=== PATIENT | male | born 1990 | race Caucasian/White ===

== ENCOUNTER 2016-09-25 19:08 | Emergency (ER) | payer BC, OTHER ==
[2016-09-25] MEDS ORDERED: TYLENOL ONE (19:52)
[2016-09-25 21:11] LABS: Basophils % (Auto) 0.8 % (0.0-1.8); Eosinophils % (Auto) 0.3 % (0.0-4.3); Hematocrit 46.1 % (35.5-45.6); Hemoglobin 15.1 gm/dl (11.8-15.2); Mean Corpuscular HGB Conc 33 % (32-34); Mean Corpuscular Hemoglobin 29 pg (28-32); Mean Corpuscular Volume 87 fl (84-94); Platelet Count 275 K/mm3 (140-440); Red Cell Distribution Width 13.8 % (13.2-15.2); White Blood Count 12.5 K/mm3 (4.5-11.0)
[2016-09-25 21:33] LABS: Anion Gap 22 mmol/L; BUN/Creatinine Ratio 13.75; Blood Urea Nitrogen 11 mg/dL (9-20); Calcium 9.6 mg/dL (8.4-10.2); Carbon Dioxide 21 mmol/L (22-30); Chloride 100.2 mmol/L (98-107); Glucose 127 mg/dL (75-100); Potassium 3.3 mmol/L (3.6-5.0); Sodium 140 mmol/L (137-145)
[2016-09-25 21:42] LABS: Urine Drugs of Abuse Note Disclamer
[2016-09-25 22:07] LABS: Bilirubin,Urine NEG (Negative); Blood,Urine NEG (Negative); Ketones,Urine 20 mg/dL (Negative); Leukocyte Esterase,Urine NEG (Negative); Mucus,Urine 3+ /HPF; Nitrite,Urine NEG (Negative); Urobilinogen,Urine < 2.0 mg/dL (<2.0)
[2016-09-25] MEDS ORDERED: TYLENOL PO ONE (22:47)
[2016-09-25 23:22] VITALS: BP 134/82
--- NOTE | 2016-09-25 23:36 | Emergency Department Report ---
HPI - General Chief Complaint: Psych Time Seen by Provider: 09/25/16 23:22 - HPI HPI: Room 8 The patient is a 26-year-old male presenting with a chief complaint of chest pain. The patient states for 1 day he has had constant left chest pain described as sharp in nature. Patient does admit to a slight pleuritic component. Patient is to nausea but denies vomiting, shortness of breath, cough or fever. The patient currently gives his pain a score of 1/10. Patient denies suicidal or homicidal ideation. Patient denies auditory hallucinations. Location: Chest Duration: One day Quality: Sharp Severity: 1/10 Modifying factors: [see above] Context: [see above] Mode of transportation: [not driving] ED Past Medical Hx - Past Medical History Previous Medical History?: Yes Hx Psychiatric Treatment: Yes (schizophrenia) - Surgical History Past Surgical History?: Yes Additional Surgical History: Left knee - Family History Family history: no significant - Social History Smoking Status: Current Every Day Smoker (one pack per day) Substance Use Type: Prescribed, Other - Medications Home Medications: Home Medications Medication Instructions Recorded Confirmed Last Taken Type Sertraline [Zoloft] 100 mg PO QDAY 09/25/16 09/25/16 09/25/16 History Ibuprofen [Motrin 800 MG tab] 800 mg PO Q8HR PRN #20 tablet 09/26/16 Unknown Rx traMADol [Ultram] 50 mg PO Q6HR PRN #10 tablet 09/26/16 Unknown Rx ED Review of Systems ROS: Stated complaint: HEAD/EAR/HEART HURT Other details as noted in HPI Comment: All other systems reviewed and negative Constitutional: denies: chills, fever Eyes: denies: eye pain, eye discharge, vision change ENT: denies: ear pain, throat pain Respiratory: denies: cough, shortness of breath, wheezing Cardiovascular: chest pain Endocrine: no symptoms reported Gastrointestinal: nausea. denies: vomiting Genitourinary: denies: urgency, dysuria Musculoskeletal: myalgia Skin: denies: rash, lesions Neurological: denies: headache, weakness, paresthesias Psychiatric: denies: auditory hallucinations, homicidal thoughts, suicidal thoughts Hematological/Lymphatic: denies: easy bleeding, easy bruising Physical Exam - Physical Exam Vital Signs: Vital Signs 09/25/16 09/25/16 19:50 23:14 Temperature 99.4 F 98.4 F Pulse Rate 107 H 105 H Respiratory 18 20 Rate Blood Pressure 134/82 [Left] Blood Pressure 156/93 [Right] O2 Sat by Pulse 99 100 Oximetry Physical Exam: GENERAL: The patient is well-developed well-nourished male lying on stretcher not appearing to be in acute distress. Patient has apparent poor hygiene and flat affect HEENT: Normocephalic. Atraumatic. Extraocular motions are intact. Patient has moist mucous membranes. NECK: Supple. Trachea midline CHEST/LUNGS: Clear to auscultation. There is no respiratory distress noted. HEART/CARDIOVASCULAR: Regular. There is no tachycardia. There is no gallop rub or murmur. ABDOMEN: Abdomen is soft, nontender. Patient has normal bowel sounds. There is no abdominal distention. SKIN: There is no rash. There is no edema. There is no diaphoresis. NEURO: The patient is awake, alert, and oriented. The patient is cooperative. The patient has no focal neurologic deficits. MUSCULOSKELETAL: There is no evidence of acute injury. ED Course Vital Signs 09/25/16 09/25/16 19:50 23:14 Temperature 99.4 F 98.4 F Pulse Rate 107 H 105 H Respiratory 18 20 Rate Blood Pressure 134/82 [Left] Blood Pressure 156/93 [Right] O2 Sat by Pulse 99 100 Oximetry - Consultations Consultation #1: 09/26/16 00:32 Case discussed with mental health new home sales consultant. Patient okay to continue outpatient therapy ED Medical Decision Making - Lab Data Result diagrams: 09/25/16 20:51 09/25/16 20:51 Laboratory Tests 09/25/16 09/25/16 09/25/16 20:51 20:51 20:51 WBC 12.5 H RBC 5.30 H Hgb 15.1 Hct 46.1 H MCV 87 MCH 29 MCHC 33 RDW 13.8 Plt Count 275 Lymph % (Auto) 10.5 L [place] % (Auto) 8.5 H Eos % (Auto) 0.3 Baso % (Auto) 0.8 Lymph # 1.3 [place] # 1.1 H Eos # 0.0 Baso # 0.1 Seg Neutrophils % 79.9 H Seg Neutrophils # 10.0 H D-Dimer Sodium 140 Potassium 3.3 L Chloride 100.2 Carbon Dioxide 21 L Anion Gap 22 BUN 11 Creatinine 0.8 Estimated GFR > 60 BUN/Creatinine Ratio 13.75 Glucose 127 H Calcium 9.6 Troponin T < 0.010 Urine Color Urine Turbidity Urine pH Ur Specific [place] Urine Protein Urine Glucose (UA) Urine Ketones Urine Blood Urine Nitrite Urine Bilirubin Urine Urobilinogen Ur Leukocyte Esterase Urine WBC (Auto) Urine RBC (Auto) U Epithel Cells (Auto) Urine Mucus Urine Opiates Screen Urine Methadone Screen Ur Barbiturates Screen Ur Phencyclidine Scrn Ur Amphetamines Screen U Benzodiazepines Scrn Urine Cocaine Screen U Marijuana (THC) Screen Drugs of Abuse Note Plasma/Serum Alcohol < 0.01 09/25/16 09/25/16 09/25/16 21:36 21:36 23:25 WBC RBC Hgb Hct MCV MCH MCHC RDW Plt Count Lymph % (Auto) [place] % (Auto) Eos % (Auto) Baso % (Auto) Lymph # [place] # Eos # Baso # Seg Neutrophils % Seg Neutrophils # D-Dimer Sodium Potassium Chloride Carbon Dioxide Anion Gap BUN Creatinine Estimated GFR BUN/Creatinine Ratio Glucose Calcium Troponin T < 0.010 Urine Color Yellow Urine Turbidity Clear Urine pH 5.0 Ur Specific [place] 1.028 Urine Protein 30 mg/dl Urine Glucose (UA) Neg Urine Ketones 20 Urine Blood Neg Urine Nitrite Neg Urine Bilirubin Neg Urine Urobilinogen < 2.0 Ur Leukocyte Esterase Neg Urine WBC (Auto) 2.0 Urine RBC (Auto) 3.0 U Epithel Cells (Auto) < 1.0 Urine Mucus 3+ Urine Opiates Screen Presumptive negative Urine Methadone Screen Presumptive negative Ur Barbiturates Screen Presumptive negative Ur Phencyclidine Scrn Presumptive negative Ur Amphetamines Screen Presumptive negative U Benzodiazepines Scrn Presumptive negative Urine Cocaine Screen Presumptive negative U Marijuana (THC) Screen Presumptive negative Drugs of Abuse Note Disclamer Plasma/Serum Alcohol 09/25/16 23:33 WBC RBC Hgb Hct MCV MCH MCHC RDW Plt Count Lymph % (Auto) [place] % (Auto) Eos % (Auto) Baso % (Auto) Lymph # [place] # Eos # Baso # Seg Neutrophils % Seg Neutrophils # D-Dimer 160.16 Sodium Potassium Chloride Carbon Dioxide Anion Gap BUN Creatinine Estimated GFR BUN/Creatinine Ratio Glucose Calcium Troponin T Urine Color Urine Turbidity Urine pH Ur Specific [place] Urine Protein Urine Glucose (UA) Urine Ketones Urine Blood Urine Nitrite Urine Bilirubin Urine Urobilinogen Ur Leukocyte Esterase Urine WBC (Auto) Urine RBC (Auto) U Epithel Cells (Auto) Urine Mucus Urine Opiates Screen Urine Methadone Screen Ur Barbiturates Screen Ur Phencyclidine Scrn Ur Amphetamines Screen U Benzodiazepines Scrn Urine Cocaine Screen U Marijuana (THC) Screen Drugs of Abuse Note Plasma/Serum Alcohol - EKG Data -: EKG Interpreted by Me EKG shows normal: sinus rhythm Rate: tachycardia (111 bpm) - EKG Data When compared to previous EKG there are: previous EKG unavailable - Radiology Data Radiology results: image reviewed (chest x-ray) interpreted by me: Chest x-ray-no focal infiltrates, no pneumothorax - Differential Diagnosis PE, pericarditis, GERD, pneumonia, pneumothorax Critical care attestation.: If time is entered above; I have spent that time in minutes in the direct care of this critically ill patient, excluding procedure time. ED Disposition Clinical Impression: Schizophrenia, Atypical chest pain Disposition: DISCHARGED TO HOME OR SELFCARE Is pt being admited?: No Does the pt Need Aspirin: No Condition: Stable Instructions: Chest Pain (ED) Additional Instructions: Return to the emergency department immediately should you develop worsening symptoms, fever, inability to tolerate food or liquid or any other concerns. Prescriptions: Ibuprofen [Motrin 800 MG tab] 800 mg PO Q8HR PRN #20 tablet PRN Reason: Pain traMADol [Ultram] 50 mg PO Q6HR PRN #10 tablet PRN Reason: Pain Referrals: PRIMARY CARE, [Primary Care Provider] - 3-5 Days Time of Disposition: 00:35
--- NOTE | 2016-09-26 08:00 | XRay Report ---
ROUTINE CHEST, TWO VIEWS: Chest pain. PA and lateral views demonstrate the heart and mediastinal contour to be of normal size and shape. The lungs are clear and fully expanded and the soft tissues and bony structures are normal. IMPRESSION: Normal study.
== END 2016-09-26 00:54 | disposition home or self-care (01) ==
LOC: ED 19:08
DX: F20.9 Schizophrenia, unspecified (principal); R07.89 Other chest pain; F17.200 Nicotine dependence, unspecified, uncomplicated
CPT/HCPCS: 36415; 71020; 80048; 80307; 81001; 84484; 85025; 85379; 93005; 93010; 99285; G0480; 80320

== ENCOUNTER 2018-03-12 12:18 | Outpatient (CLI) | payer OTHER ==
--- NOTE | 2018-03-12 13:26 | Ultrasound Report ---
ULTRASOUND TESTICULAR DOPPLER COMPLETE History: Epididymitis. Technique: Trans-scrotal ultrasound with spectral doppler interrogation. Findings: Both testes and are normal size, contour and echotexture. No hydrocele or varicocele. No mass or pathologic calcifications. The right epididymal head is slightly enlarged and heterogeneous which could represent epididymitis. The left epididymis is normal. Doppler interrogation depicts symmetric arterial flow to both testes. IMPRESSION: Question mild right epididymitis.
== END 2018-03-12 12:19 | disposition home or self-care (01) ==
LOC: US 12:18
PROVIDERS: ATTEND Urology
DX: N45.1 Epididymitis (principal); F17.210 Nicotine dependence, cigarettes, uncomplicated; Z88.8 Allergy status to other drugs, medicaments and biological substances
CPT/HCPCS: 93975

== ENCOUNTER 2018-09-16 18:34 | Emergency (ER) | payer OTHER ==
--- NOTE | 2018-09-16 18:57 | Emergency Department Report ---
Stated Complaint: ANXIETY Time Seen by Provider: 09/16/18 18:53 - HPI History of Present Illness: This is a 28 y.o. male that presents to the ER to r/o allergic reaction. Reports muscles feel tense. Patient states he took geodon earlier than usual. He took it 40 mins to an hour ago. He usually take it at night. Denies SI/HI, hallucinations, or pain. Depression, anxiety, and schizophrenia - Exam Vital Signs: Vital Signs 09/16/18 18:54 Temperature 98.7 F Pulse Rate 90 Respiratory 18 Rate Blood Pressure 133/88 O2 Sat by Pulse 99 Oximetry MSE screening note: Focused history and physical exam performed. Due to findings the following was ordered: labs Main ED ED Disposition for MSE Condition: Stable
[2018-09-16 18:59] VITALS: BP 133/88
[2018-09-16 19:57] LABS: Basophils # (Auto) 0.1 K/mm3 (0.0-0.1); Basophils % (Auto) 0.9 % (0.0-1.8); Eosinophils # (Auto) 0.2 K/mm3 (0.0-0.4); Eosinophils % (Auto) 1.6 % (0.0-4.3); Lymphocytes # (Auto) 3.8 K/mm3 (1.2-5.4); Mean Corpuscular HGB Conc 36 % (32-34); Mean Corpuscular Volume 88 fl (84-94); Monocytes % (Auto) 8.1 % (0.0-7.3); Platelet Count 349 K/mm3 (140-440); Red Blood Count 5.27 M/mm3 (3.65-5.03); Red Cell Distribution Width 13.5 % (13.2-15.2)
[2018-09-16 20:09] LABS: BUN/Creatinine Ratio 10; Blood Urea Nitrogen 10 mg/dL (9-20); Hemolysis Index 16
[2018-09-16 20:16] LABS: Hemoglobin 16.7 gm/dl (11.8-15.2)
[2018-09-16 20:17] LABS: Hematocrit 46.3 % (35.5-45.6)
[2018-09-16 21:45] LABS: Bilirubin,Urine NEG (Negative); Blood,Urine SM (Negative); Color,Urine Yellow (Yellow); Hyaline Casts,Urine 10 /LPF; Mucus,Urine 2+ /HPF; Protein,Urine <15 mg/dL mg/dL (Negative); Urobilinogen,Urine < 2.0 mg/dL (<2.0)
[2018-09-16 21:58] LABS: Amphetamine Screen,Urine PRESUMPTIVE NEGATIVE; Benzodiazepines Screen,Urine PRESUMPTIVE NEGATIVE; Cannabinoid Screen,Urine PRESUMPTIVE NEGATIVE; Cocaine Screen,Urine PRESUMPTIVE NEGATIVE; Methadone Screen,Urine PRESUMPTIVE NEGATIVE; Opiate Screen,Urine PRESUMPTIVE NEGATIVE
--- NOTE | 2018-09-17 01:24 | Emergency Department Report ---
ED General Adult HPI - General Chief complaint: Psych Stated complaint: ANXIETY Time Seen by Provider: 09/16/18 18:53 Source: patient, RN notes reviewed, old records reviewed Mode of arrival: Wheelchair Limitations: No Limitations - History of Present Illness Initial comments: This is a 28-year-old gentleman. The patient is not known to this provider p reviously. The patient has a past medical history of psychiatric disease, schizophrenia, depression, anxiety. He has been on Geodon for 6 months to one year. He does not currently have a local private psychiatrist. He reports that at 6:00 yesterday afternoon, he took his Geodon somewhat earlier, and then for approximately 30 seconds to 30 minutes, had twisting of his left torso, and twisting of his right upper extremity. This is now resolved. This sensation has been constantly resolved, does not have exacerbating or relieving factors and does not radiate anywhere. The patient denies headache, neck pain, abdominal pain, shortness of breath, testicular pain, urinary symptoms, homicidality, suicidality. He indicates no access to guns or firearms. He has chronic audio hallucinations. He mentions central nonradiating, nonexertional, chest pain, pressure, which has been present for months to years, which he believes is his "anxiety." He denies DVT, pulmonary embolus risk factors. -: Sudden Location: abdomen, right Radiation: non-radiation Severity scale (0 -10): 0 Consistency: now resolved Improves with: none Worsens with: none Associated Symptoms: denies other symptoms, chest pain - Related Data Home Medications Medication Instructions Recorded Confirmed Last Taken Sertraline [Zoloft] 100 mg PO QDAY 09/25/16 09/17/18 09/25/16 Previous Rx's Medication Instructions Recorded Last Taken Type Ibuprofen [Motrin 800 MG tab] 800 mg PO Q8HR PRN #20 tablet 09/26/16 Unknown Rx traMADol [Ultram] 50 mg PO Q6HR PRN #10 tablet 09/26/16 Unknown Rx Allergies Allergy/AdvReac Type Severity Reaction Status Date / Time haloperidol [From Haldol] AdvReac Anaphylaxis Unverified 03/12/18 12:19 ED Review of Systems ROS: Stated complaint: ANXIETY Other details as noted in HPI Constitutional: denies: fever, malaise Eyes: denies: vision change ENT: denies: epistaxis Respiratory: denies: cough Cardiovascular: chest pain Gastrointestinal: denies: abdominal pain, nausea, vomiting Genitourinary: denies: dysuria, testicular pain Musculoskeletal: denies: back pain Skin: denies: lesions Neurological: denies: headache, weakness Psychiatric: auditory hallucinations. denies: homicidal thoughts, suicidal thoughts ED Past Medical Hx - Past Medical History Previous Medical History?: Yes Hx Psychiatric Treatment: Yes (schizophrenia, depression, anxiety) - Surgical History Past Surgical History?: Yes Additional Surgical History: Left knee - Social History Smoking Status: Current Every Day Smoker Substance Use Type: None - Medications Home Medications: Home Medications Medication Instructions Recorded Confirmed Last Taken Type Sertraline [Zoloft] 100 mg PO QDAY 09/25/16 09/17/18 09/25/16 History Ibuprofen [Motrin 800 MG tab] 800 mg PO Q8HR PRN #20 tablet 09/26/16 09/17/18 Unknown Rx traMADol [Ultram] 50 mg PO Q6HR PRN #10 tablet 09/26/16 09/17/18 Unknown Rx ED Physical Exam - General Limitations: No Limitations General appearance: alert, in no apparent distress - Head Head exam: Present: atraumatic, normocephalic - Eye Eye exam: Present: normal appearance, PERRL, EOMI, other (visual acuity intact to finger counting, color perception, reading at a close distance). Absent: nystagmus - ENT ENT exam: Present: normal exam, normal orophraynx, mucous membranes moist, normal external ear exam - Neck Neck exam: Present: normal inspection, full ROM. Absent: tenderness, meningismus - Respiratory Respiratory exam: Present: normal lung sounds bilaterally. Absent: respiratory distress, wheezes, rales, rhonchi, stridor, chest wall tenderness - Cardiovascular Cardiovascular Exam: Present: regular rate, normal rhythm, normal heart sounds. Absent: bradycardia, tachycardia, irregular rhythm, systolic murmur, diastolic murmur, rubs, gallop - GI/Abdominal GI/Abdominal exam: Present: soft. Absent: distended, tenderness, guarding, rebound, rigid, pulsatile mass - Rectal Rectal exam: Present: deferred - Extremities Exam Extremities exam: Present: normal inspection, full ROM, other (2+ pulses noted in the bilateral upper, lower extremities. Compartments soft. No long bony tenderness. The pelvis is stable.). Absent: pedal edema, joint swelling, calf tenderness - Back Exam Back exam: Present: normal inspection, full ROM. Absent: tenderness, CVA tenderness (R), paraspinal tenderness, vertebral tenderness - Neurological Exam Neurological exam: Present: alert, oriented X3, CN II-XII intact, normal gait, other (Extraocular movements intact. Tongue midline. No facial droop. Facial sensation intact to light touch in the V1, V2, V3 distribution bilaterally. 5 and 5 strength in 4 extremities.. Sensation is intact to light touch in 4 extremities.). Absent: motor sensory deficit - Psychiatric Psychiatric exam: Present: flat affect. Absent: homicidal ideation, suicidal ideation - Skin Skin exam: Present: warm, dry, intact, normal color. Absent: rash ED Course Vital Signs 09/16/18 18:54 Temperature 98.7 F Pulse Rate 90 Respiratory 18 Rate Blood Pressure 133/88 O2 Sat by Pulse 99 Oximetry - Reevaluation(s) Reevaluation #1: 09/17/18 01:23 Differential diagnosis, including but not limited to: Chronic noncardiac chest pain, dystonic reaction, anxiety, conversion disorder Assessment and plan: 28-year-old gentleman, with complaints of resolved abdomin al torso twisting, and right upper extremity twisting, after taking his Geodon medication slightly earlier than usual. He also complains of chronic nonexertional nonradiating chest pain, now resolved. Low risk by well's criteria, no pulmonary embolus or DVT risk factors, not hypoxic. Screening laboratory studies unremarkable. He does not meet 1013 criteria at this time. There is no obvious twisting or dystonic reaction at this time. He does not appear to have an acute medical emergent condition, or psychiatrically emergent condition at this time. He is counseled to follow-up in outpatient primary care doctor, and/or psychiatrist. Return precautions are reviewed. 09/17/18 01:33 ED Medical Decision Making - Lab Data Result diagrams: 09/16/18 19:13 09/16/18 19:13 Vital Signs 09/16/18 18:54 Temperature 98.7 F Pulse Rate 90 Respiratory 18 Rate Blood Pressure 133/88 O2 Sat by Pulse 99 Oximetry Lab Results 09/16/18 09/16/18 09/16/18 Range/Units 19:13 19:13 19:13 WBC (4.5-11.0) K/mm3 RBC (3.65-5.03) M/mm3 Hgb (11.8-15.2) gm/dl Hct (35.5-45.6) % MCV (84-94) fl MCH (28-32) pg MCHC (32-34) % RDW (13.2-15.2) % Plt Count (140-440) K/mm3 Lymph % (Auto) (13.4-35.0) % [place] % (Auto) (0.0-7.3) % Eos % (Auto) (0.0-4.3) % Baso % (Auto) (0.0-1.8) % Lymph # (1.2-5.4) K/mm3 [place] # (0.0-0.8) K/mm3 Eos # (0.0-0.4) K/mm3 Baso # (0.0-0.1) K/mm3 Seg Neutrophils % (40.0-70.0) % Seg Neutrophils # (1.8-7.7) K/mm3 Sodium 142 (137-145) mmol/L Potassium 4.0 (3.6-5.0) mmol/L Chloride 101.2 (98-107) mmol/L Carbon Dioxide 26 (22-30) mmol/L Anion Gap 19 mmol/L BUN 10 (9-20) mg/dL Creatinine 1.0 (0.8-1.5) mg/dL Estimated GFR > 60 ml/min BUN/Creatinine Ratio 10 % Glucose 105 H (75-100) mg/dL Calcium 10.0 (8.4-10.2) mg/dL Urine Color (Yellow) Urine Turbidity (Clear) Urine pH (5.0-7.0) Ur Specific [place] (1.003-1.030) Urine Protein (Negative) mg/dL Urine Glucose (UA) (Negative) mg/dL Urine Ketones (Negative) mg/dL Urine Blood (Negative) Urine Nitrite (Negative) Urine Bilirubin (Negative) Urine Urobilinogen (<2.0) mg/dL Ur Leukocyte Esterase (Negative) Urine WBC (Auto) (0.0-6.0) /HPF Urine RBC (Auto) (0.0-6.0) /HPF U Epithel Cells (Auto) (0-13.0) /HPF Hyaline Casts /LPF Urine Mucus /HPF Salicylates < 0.3 L (2.8-20.0) mg/dL Urine Opiates Screen Urine Methadone Screen Acetaminophen < 5.0 L (10.0-30.0) ug/mL Ur Barbiturates Screen Ur Phencyclidine Scrn Ur Amphetamines Screen U Benzodiazepines Scrn Urine Cocaine Screen U Marijuana (THC) Screen Drugs of Abuse Note Plasma/Serum Alcohol (0-0.07) % 09/16/18 09/16/18 09/16/18 Range/Units 19:13 19:13 21:06 WBC 12.6 H (4.5-11.0) K/mm3 RBC 5.27 H (3.65-5.03) M/mm3 Hgb 16.7 H (11.8-15.2) gm/dl Hct 46.3 H (35.5-45.6) % MCV 88 (84-94) fl MCH 32 (28-32) pg MCHC 36 H (32-34) % RDW 13.5 (13.2-15.2) % Plt Count 349 (140-440) K/mm3 Lymph % (Auto) 30.0 (13.4-35.0) % [place] % (Auto) 8.1 H (0.0-7.3) % Eos % (Auto) 1.6 (0.0-4.3) % Baso % (Auto) 0.9 (0.0-1.8) % Lymph # 3.8 (1.2-5.4) K/mm3 [place] # 1.0 H (0.0-0.8) K/mm3 Eos # 0.2 (0.0-0.4) K/mm3 Baso # 0.1 (0.0-0.1) K/mm3 Seg Neutrophils % 59.4 (40.0-70.0) % Seg Neutrophils # 7.5 (1.8-7.7) K/mm3 Sodium (137-145) mmol/L Potassium (3.6-5.0) mmol/L Chloride (98-107) mmol/L Carbon Dioxide (22-30) mmol/L Anion Gap mmol/L BUN (9-20) mg/dL Creatinine (0.8-1.5) mg/dL Estimated GFR ml/min BUN/Creatinine Ratio % Glucose (75-100) mg/dL Calcium (8.4-10.2) mg/dL Urine Color Yellow (Yellow) Urine Turbidity Clear (Clear) Urine pH 6.0 (5.0-7.0) Ur Specific [place] 1.017 (1.003-1.030) Urine Protein <15 mg/dl (Negative) mg/dL Urine Glucose (UA) Neg (Negative) mg/dL Urine Ketones Neg (Negative) mg/dL Urine Blood Sm (Negative) Urine Nitrite Neg (Negative) Urine Bilirubin Neg (Negative) Urine Urobilinogen < 2.0 (<2.0) mg/dL Ur Leukocyte Esterase Neg (Negative) Urine WBC (Auto) 1.0 (0.0-6.0) /HPF Urine RBC (Auto) 8.0 (0.0-6.0) /HPF U Epithel Cells (Auto) < 1.0 (0-13.0) /HPF Hyaline Casts 10 /LPF Urine Mucus 2+ /HPF Salicylates (2.8-20.0) mg/dL Urine Opiates Screen Urine Methadone Screen Acetaminophen (10.0-30.0) ug/mL Ur Barbiturates Screen Ur Phencyclidine Scrn Ur Amphetamines Screen U Benzodiazepines Scrn Urine Cocaine Screen U Marijuana (THC) Screen Drugs of Abuse Note Plasma/Serum Alcohol < 0.01 (0-0.07) % 09/16/18 Range/Units 21:06 WBC (4.5-11.0) K/mm3 RBC (3.65-5.03) M/mm3 Hgb (11.8-15.2) gm/dl Hct (35.5-45.6) % MCV (84-94) fl MCH (28-32) pg MCHC (32-34) % RDW (13.2-15.2) % Plt Count (140-440) K/mm3 Lymph % (Auto) (13.4-35.0) % [place] % (Auto) (0.0-7.3) % Eos % (Auto) (0.0-4.3) % Baso % (Auto) (0.0-1.8) % Lymph # (1.2-5.4) K/mm3 [place] # (0.0-0.8) K/mm3 Eos # (0.0-0.4) K/mm3 Baso # (0.0-0.1) K/mm3 Seg Neutrophils % (40.0-70.0) % Seg Neutrophils # (1.8-7.7) K/mm3 Sodium (137-145) mmol/L Potassium (3.6-5.0) mmol/L Chloride (98-107) mmol/L Carbon Dioxide (22-30) mmol/L Anion Gap mmol/L BUN (9-20) mg/dL Creatinine (0.8-1.5) mg/dL Estimated GFR ml/min BUN/Creatinine Ratio % Glucose (75-100) mg/dL Calcium (8.4-10.2) mg/dL Urine Color (Yellow) Urine Turbidity (Clear) Urine pH (5.0-7.0) Ur Specific [place] (1.003-1.030) Urine Protein (Negative) mg/dL Urine Glucose (UA) (Negative) mg/dL Urine Ketones (Negative) mg/dL Urine Blood (Negative) Urine Nitrite (Negative) Urine Bilirubin (Negative) Urine Urobilinogen (<2.0) mg/dL Ur Leukocyte Esterase (Negative) Urine WBC (Auto) (0.0-6.0) /HPF Urine RBC (Auto) (0.0-6.0) /HPF U Epithel Cells (Auto) (0-13.0) /HPF Hyaline Casts /LPF Urine Mucus /HPF Salicylates (2.8-20.0) mg/dL Urine Opiates Screen Presumptive negative Urine Methadone Screen Presumptive negative Acetaminophen (10.0-30.0) ug/mL Ur Barbiturates Screen Presumptive negative Ur Phencyclidine Scrn Presumptive negative Ur Amphetamines Screen Presumptive negative U Benzodiazepines Scrn Presumptive negative Urine Cocaine Screen Presumptive negative U Marijuana (THC) Screen Presumptive negative Drugs of Abuse Note Disclamer Plasma/Serum Alcohol (0-0.07) % - EKG Data -: EKG Interpreted by Me EKG shows normal: sinus rhythm Rate: tachycardia - EKG Data 09/17/18 01:33 Sinus tachycardia, 112 bpm, normal axis, high left ventricular voltage, QTC prolonged, motion artifact, high left ventricular voltage, unchanged from prior EKG from 09/25/2016, not consistent with ST elevation myocardial infarction. Critical care attestation.: If time is entered above; I have spent that time in minutes in the direct care of this critically ill patient, excluding procedure time. ED Disposition Clinical Impression: General medical exam Disposition: [id number] TO HOME OR SELFCARE Is pt being admited?: No Does the pt Need Aspirin: No Condition: Stable Additional Instructions: Continue outpatient medications. Follow-up with the primary care doctor within the next month. Follow up with a psychiatrist within the next month. Return to the emergency room right away with it, worsens or different symptoms. Return to the emergency room right away with symptoms not present on the initial emergency room evaluation. Referrals: RAKESH PAGAN MD [Primary Care Provider] - 3-5 Days MEME BOB MD [Referring] - 3-5 Days ANA BURRELL MD [Staff Physician] - 3-5 Days JUAN LIND MD [Referring] - 3-5 Days CHRISTIAN COY NP [Advanced Practice Nurse] - 3-5 Days DAY CASTILLO NP-C [Advanced Practice Nurse] - 3-5 Days MAG FIELDS MD [Staff Physician] - 3-5 Days KEISHA FIELDS MD [Staff Physician] - 3-5 Days
== END 2018-09-17 03:36 | disposition home or self-care (01) ==
LOC: ED 18:34
DX: M62.838 Other muscle spasm (principal); R44.0 Auditory hallucinations; F41.9 Anxiety disorder, unspecified
CPT/HCPCS: 36415; 80048; 80307; 81001; 82550; 85025; 93005; 93010; 99283; G0480; 80320